=== PATIENT | female | born 1975 | race Caucasian/White ===

== ENCOUNTER 2017-05-19 13:17 | Observation (INO) | payer OTHER ==
[2017-05-19] VITALS (7 sets, daily range): BP systolic 107–137; BP diastolic 62–74; PULSE 69–92; RESP 17–18; TEMP 98.1–98.2; O2SAT 96–100
[~2017-05-19 13:17] MED LIST: MULTTAB4
[2017-05-19 15:07] LABS: AUTOMATED NEUTROPHIL # 2.1 TH/MM3 (1.8-7.7); BASOPHIL % 0.5 % (0.0-2.0); EOSINOPHIL # 0.1 TH/MM3 (0-0.4); EOSINOPHIL % 1.6 % (0.0-4.0); HEMATOCRIT 39.1 % (35.0-46.0); HEMOGLOBIN 13.4 GM/DL (11.6-15.3); LYMPH % 34.9 % (9.0-44.0); LYMPHOCYTE # 1.5 TH/MM3 (1.0-4.8); MEAN CELL VOLUME 91.1 FL (80.0-100.0); MEAN CORPUSCULAR HEMOGLOBIN 31.3 PG (27.0-34.0); MEAN CORPUSCULAR HGB CONC 34.3 % (32.0-36.0); MEAN PLATELET VOLUME 8.3 FL (7.0-11.0); MONO % 13.7 % (0.0-8.0); MONOCYTE # 0.6 TH/MM3 (0-0.9); NEUT % 49.3 % (16.0-70.0); PLATELET COUNT 300 TH/MM3 (150-450); RED CELL DISTRIBUTION WIDTH 12.1 % (11.6-17.2); WHITE BLOOD COUNT 4.2 TH/MM3 (4.0-11.0)
[2017-05-19 15:18] LABS: PROTHROMBIN TIME - PATIENT 10.6 SEC (9.8-11.6)
[2017-05-19 15:23] LABS: BICARBONATE 26.8 MEQ/L (21.0-32.0); BLOOD UREA NITROGEN 8 MG/DL (7-18); CALCIUM 8.6 MG/DL (8.5-10.1); CHLORIDE 106 MEQ/L (98-107); CREATININE 0.58 MG/DL (0.50-1.00); GLOMERULAR FILTRATION RATE 113 ML/MIN (>89); GLUCOSE,RANDOM 77 MG/DL (74-106); SODIUM (NA) 139 MEQ/L (136-145)
[2017-05-19 15:26] LABS: TROPONIN I LESS THAN 0.02 NG/ML (0.02-0.05)
[2017-05-19] MEDS ORDERED: ASPIRIN 325 MG TAB PO ONE (15:45)
[2017-05-19 15:58] LABS: ALBUMIN 4.1 GM/DL (3.4-5.0); DIRECT BILIRUBIN ADULT 0.1 MG/DL (0.0-0.2)
[2017-05-19 16:00] LABS: INDIRECT BILIRUBIN 0.4 MG/DL (0.0-0.8); TOTAL BILIRUBIN ADULT 0.5 MG/DL (0.2-1.0); TOTAL PROTEIN 8.2 GM/DL (6.4-8.2)
--- NOTE | 2017-05-19 16:34 | PD ---
HPI Chief Complaint: Cardiac Complaint Time Seen by Provider: 15:24 Travel History International Travel<30 days: No Contact w/Intl Traveler<30days: No Traveled to known affect area: No History of Present Illness HPI 42-year-old female that presents to the ED for evaluation of left shoulder pain and chest pain. Patient has had this shoulder pain for about 3 weeks and the chest pain for about 3 days. She wasn't aware about the shoulder pain as she believes that a herniated disc versus muscle. She got concerned because the chest pain started 3 days ago and she has a family history of heart disease. She has no history of heart disease herself. No medical issues. Takes no medications. Per patient she is for the most part healthy and does a good diet. She does a lot of organic foods. She states that the pain of the chest is 3 out of 10 and feels more like a pressure. Denies any urinary or bowel movement issues. No nausea or vomiting. She had an episode nausea and vomited yesterday but not today. No history of smoking. PFSH Past Medical History Medical History: Denies Significant Hx Diminished Hearing: No Immunizations Current: No Tetanus Vaccination: Unknown Influenza Vaccination: No ?: Not LMP: a week ago Past Surgical History Appendectomy: Yes Other Surgery: Yes (breast implants 2016) Social History Alcohol Use: Yes (occ ) Tobacco Use: No Substance Use: No Allergies-Medications (Allergen,Severity, Reaction): Coded Allergies: Sulfa (Sulfonamide Antibiotics) (Unverified Adverse Reaction, Severe, RASH , 05/19/17) Reported Meds & Prescriptions Reported Meds & Active Scripts Active Reported Multivitamins (Multiple Vitamin) Tab DAILY Review of Systems Except as stated in HPI: all other systems reviewed are Neg Physical Exam Narrative GENERAL: SKIN: Warm and dry. HEAD: Atraumatic. Normocephalic. EYES: Pupils equal and round. No scleral icterus. No injection or drainage. ENT: No nasal bleeding or discharge. Mucous membranes pink and moist. NECK: Trachea midline. No JVD. CARDIOVASCULAR: Regular rate and rhythm. RESPIRATORY: No accessory muscle use. Clear to auscultation. Breath sounds equal bilaterally. GASTROINTESTINAL: Abdomen soft, non-tender, nondistended. Hepatic and splenic margins not palpable. MUSCULOSKELETAL: Extremities without clubbing, cyanosis, or edema. No obvious deformities. Full ROM of the upper and lower extremities bilaterally. 2+ Pulses bilaterally. NEUROLOGICAL: Awake and alert. No obvious cranial nerve deficits. Motor grossly within normal limits. Five out of 5 muscle strength in the arms and legs. Normal speech. PSYCHIATRIC: Appropriate mood and affect; insight and judgment normal. Data Data Last Documented VS Vital Signs Date Time Temp Pulse Resp B/P (MAP) Pulse Ox O2 Delivery O2 Flow Rate FiO2 05/19/17 15:47 71 18 130/62 (84) 100 Room Air 05/19/17 13:20 98.2 Orders Orders Electrocardiogram (05/19/17 13:40) Complete Blood Count With Diff (05/19/17 13:40) Basic Metabolic Panel (Bmp) (05/19/17 13:40) Ckmb (Isoenzyme) Profile (05/19/17 13:40) Troponin I (05/19/17 13:40) Iv Access Insert/Monitor (05/19/17 13:40) Ecg Monitoring (05/19/17 13:40) Oxygen Administration (05/19/17 13:40) Oximetry (05/19/17 13:40) Prothrombin Time / Inr (Pt) (05/19/17 13:40) Act Partial Throm Time (Ptt) (05/19/17 13:40) Chest, Pa & Lat (05/19/17 ) Ed Urine Pregnancytest Poc (05/19/17 13:40) Lipase (05/19/17 15:38) Hepatic Functional Panel (05/19/17 15:38) Aspirin (Aspirin) (05/19/17 15:45) Admit Order (Ed Use Only) (05/19/17 16:18) Labs Laboratory Tests Test 05/19/17 14:20 White Blood Count 4.2 TH/MM3 Red Blood Count 4.30 MIL/MM3 Hemoglobin 13.4 GM/DL Hematocrit 39.1 % Mean Corpuscular Volume 91.1 FL Mean Corpuscular Hemoglobin 31.3 PG Mean Corpuscular Hemoglobin Concent 34.3 % Red Cell Distribution Width 12.1 % Platelet Count 300 TH/MM3 Mean Platelet Volume 8.3 FL Neutrophils (%) (Auto) 49.3 % Lymphocytes (%) (Auto) 34.9 % Monocytes (%) (Auto) 13.7 % Eosinophils (%) (Auto) 1.6 % Basophils (%) (Auto) 0.5 % Neutrophils # (Auto) 2.1 TH/MM3 Lymphocytes # (Auto) 1.5 TH/MM3 Monocytes # (Auto) 0.6 TH/MM3 Eosinophils # (Auto) 0.1 TH/MM3 Basophils # (Auto) 0.0 TH/MM3 CBC Comment DIFF FINAL Differential Comment Prothrombin Time 10.6 SEC Prothromb Time International Ratio 1.0 RATIO Activated Partial Thromboplast Time 24.7 SEC Blood Urea Nitrogen 8 MG/DL Creatinine 0.58 MG/DL Random Glucose 77 MG/DL Calcium Level 8.6 MG/DL Sodium Level 139 MEQ/L Potassium Level 4.1 MEQ/L Chloride Level 106 MEQ/L Carbon Dioxide Level 26.8 MEQ/L Anion Gap 6 MEQ/L Estimat Glomerular Filtration Rate 113 ML/MIN Total Bilirubin 0.5 MG/DL Direct Bilirubin 0.1 MG/DL Indirect Bilirubin 0.4 MG/DL Aspartate Amino Transf (AST/SGOT) 31 U/L Alanine Aminotransferase (ALT/SGPT) 53 U/L Alkaline Phosphatase 113 U/L Total Creatine Kinase 57 U/L Troponin I LESS THAN 0.02 NG/ML Total Protein 8.2 GM/DL Albumin 4.1 GM/DL Lipase 77 U/L [facility] Medical Decision Making Medical Screen Exam Complete: Yes Emergency Medical Condition: Yes Medical Record Reviewed: Yes Interpretation(s) CBC & BMP Diagram 05/19/17 14:20 Calcium Level 8.6 Troponin and CK-MB negative. EKG shows sinus rhythm with no sign of acute ischemia reviewed by me and attending. CXR negative Differential Diagnosis Chest pain versus atypical chest pain versus cardiac chest pain versus muscle strain versus GI Narrative Course 42-year-old female that presents to the ED for evaluation of chest pain. Patient was properly examined and was found to have signs and symptoms consistent appears to be chest pain. Concern for ACS. Labs and imaging were ordered. Labs and imaging were negative at this time. Case was discussed in my attending. Patient's only risk factor is a strong family history of heart disease. Per patient report upper arms have a heart attack at age 48. I discussed the case with my attending Dr. Jackson recommends admission for chest pain center. Patient agrees with this. Patient was admitted to chest pain center. Diagnosis Primary Impression: Chest pain in adult Admitting Information Admitting Physician Requests: Observation Garret Macias May 19, 2017 16:34
[2017-05-19] MEDS ORDERED: SODIUM CHLORIDE 0.9% FLUSH 10 ML FLUSH IV FLUSH PRN (16:45)
[2017-05-19] MEDS ORDERED: ONDANSETRON HCL 4 MG/2 ML VIAL IV PUSH PRN (16:45)
[2017-05-19] MEDS ORDERED: ACETAMINOPHEN 500 MG CPLT PO PRN (16:45)
[2017-05-19] MEDS ORDERED: NITROGLYCERIN 0.4 MG SL 25 TABS/BTL SL PRN (16:45)
--- NOTE | 2017-05-19 17:10 | RADRPT ---
EXAM DATE/TIME: 05/19/2017 15:02 [facility] COMPARISON: No previous studies available for comparison. INDICATIONS : Vomiting a chest tightness with left arm pain for two weeks. MEDICAL HISTORY : None. SURGICAL HISTORY : Breast augmentation. ENCOUNTER: Initial ACUITY: 2 weeks PAIN SCORE: 2/10 LOCATION: Bilateral chest FINDINGS: PA and lateral views of the chest demonstrate the lungs to be symmetrically aerated without evidence of mass, infiltrate or effusion. No evidence of pneumothorax. The cardiomediastinal contours are un remarkable. Osseous structures are intact. CONCLUSION: No acute cardiopulmonary disease. Cain Long MD on May 19, 2017 at 17:09 Board Certified Radiologist. This report was verified electronically.
--- NOTE | 2017-05-19 17:15 | HHI.HP ---
HPI Service Chest pain center Primary Care Physician Lazaro Vázquez MD Chief Complaint Shoulder and chest pain History of Present Illness 42-year-old lady complains of left shoulder and intermittent chest pain over the last 3 weeks the discomfort is intermittent she cannot define duration but thinks she notices it more when she thinks about it. She has had more pain at night but again she is active during the day and may not be thinking about it. She describes it as a tightness no precipitating or relieving factors and no associated symptoms however about a month ago she had an episode of nausea and vomiting and diarrhea which lasted part of the day and resolved. She had the same episode again yesterday with about an hour and a half of nausea and vomiting with bilious-like fluid and profuse diarrhea for a short period of time which she describes as green and watery. She also complains of a severe frontal headache through the night last night. She recently had an aunt who had a heart attack at 50 years of age this concerned the patient and her mother who instructed her to have this checked out. She is relatively sedentary although she is health-conscious involving organic foods. Pertinent to note that she did not get a flu shot Review of Systems Cardiovascular: COMPLAINS OF: See HPI Gastrointestinal: COMPLAINS OF: Nausea, Vomiting Past Family Social History Allergies: Coded Allergies: Sulfa (Sulfonamide Antibiotics) (Unverified Adverse Reaction, Severe, RASH , 05/19/17) Past Medical History Entirely negative Past Surgical History Appendectomy as a child and breast implants in 2016 Reported Medications Reported Meds & Active Scripts Active Reported Multivitamins (Multiple Vitamin) Tab DAILY Active Ordered Medications Current Medications Medications (Trade) Dose Ordered Sig/Aj Route Start Time Stop Time Status Last Admin (NS Flush) 2 ml UNSCH PRN IV FLUSH 05/19/17 16:45 UNV (NS Flush) 2 ml BID IV FLUSH 05/19/17 21:00 UNV (Tylenol) 500 mg Q4H PRN PO 05/19/17 16:45 UNV (Zofran Inj) 4 mg Q6H PRN IV PUSH 05/19/17 16:45 UNV (Nitrostat Sl) 0.4 mg Q5M PRN SL 05/19/17 16:45 UNV (Aspirin) 325 mg DAILY PO 05/20/17 09:00 UNV Family History Mother 67 living and well but hyperlipidemic Father age 59 of "liver" he was not an alcoholic and she is not aware of any hepatitis Social History No alcohol tobacco (rare social) or illicit drugs Physical Exam Vital Signs Vital Signs Date Time Temp Pulse Resp B/P (MAP) Pulse Ox O2 Delivery O2 Flow Rate FiO2 05/19/17 16:48 76 18 109/74 (86) 99 05/19/17 15:50 Room Air 05/19/17 15:47 71 18 130/62 (84) 100 Room Air 05/19/17 13:20 98.2 92 18 137/70 (92) 98 Physical Exam GENERAL: Patient is sitting up in bed wearing a mask but is alert and cooperative SKIN: Warm and dry. HEAD: Atraumatic. Normocephalic. EYES: Pupils equal and round. No scleral icterus. No injection or drainage. ENT: No nasal bleeding or discharge. Mucous membranes pink and moist. NECK: Trachea midline. No JVD. CARDIOVASCULAR: Regular rate and rhythm. RESPIRATORY: No accessory muscle use. Clear to auscultation. Breath sounds equal bilaterally. Bilateral breast implants but not examined GASTROINTESTINAL: Abdomen soft, non-tender, nondistended. Hepatic and splenic margins not palpable. MUSCULOSKELETAL: Extremities without clubbing, cyanosis, or edema. No obvious deformities. NEUROLOGICAL: Awake and alert. No obvious cranial nerve deficits. Motor grossly within normal limits. Five out of 5 muscle strength in the arms and legs. Normal speech. PSYCHIATRIC: Appropriate mood and affect; insight and judgment normal. Laboratory Laboratory Tests Test 05/19/17 14:20 White Blood Count 4.2 Red Blood Count 4.30 Hemoglobin 13.4 Hematocrit 39.1 Mean Corpuscular Volume 91.1 Mean Corpuscular Hemoglobin 31.3 Mean Corpuscular Hemoglobin Concent 34.3 Red Cell Distribution Width 12.1 Platelet Count 300 Mean Platelet Volume 8.3 Neutrophils (%) (Auto) 49.3 Lymphocytes (%) (Auto) 34.9 Monocytes (%) (Auto) 13.7 Eosinophils (%) (Auto) 1.6 Basophils (%) (Auto) 0.5 Neutrophils # (Auto) 2.1 Lymphocytes # (Auto) 1.5 Monocytes # (Auto) 0.6 Eosinophils # (Auto) 0.1 Basophils # (Auto) 0.0 CBC Comment DIFF FINAL Differential Comment Prothrombin Time 10.6 Prothromb Time International Ratio 1.0 Activated Partial Thromboplast Time 24.7 Blood Urea Nitrogen 8 Creatinine 0.58 Random Glucose 77 Calcium Level 8.6 Sodium Level 139 Potassium Level 4.1 Chloride Level 106 Carbon Dioxide Level 26.8 Anion Gap 6 Estimat Glomerular Filtration Rate 113 Total Bilirubin 0.5 Direct Bilirubin 0.1 Indirect Bilirubin 0.4 Aspartate Amino Transf (AST/SGOT) 31 Alanine Aminotransferase (ALT/SGPT) 53 Alkaline Phosphatase 113 Total Creatine Kinase 57 Troponin I LESS THAN 0.02 Total Protein 8.2 Albumin 4.1 Lipase 77 Result Diagram: 05/19/17141905/19/171419 Imaging Pending Course We will rule out ACS using standard chest pain center protocol and if negative will stress test in the morning Caprini VTE Risk Assessment Caprini VTE Risk Assessment: No/Low Risk (score <= 1) Caprini Risk Assessment Model Point Value = 1 Point Value = 2 Point Value = 3 Point Value = 5 Age 41-60 Minor surgery BMI > 25 kg/m2 Swollen legs Varicose veins or History of unexplained or recurrent spontaneous Oral contraceptives or hormone replacement Sepsis (< 1 month) Serious lung disease, including pneumonia (< 1 month) Abnormal pulmonary function Acute myocardial infarction Congestive heart failure (< 1 month) History of inflammatory bowel disease Medical patient at bed rest Age 61-74 Arthroscopic surgery Major open surgery (> 45 min) Laparoscopic surgery (> 45 min) Malignancy Confined to bed (> 72 hours) Immobilizing plaster cast Central venous access Age >= 75 History of VTE Family history of VTE Factor V Leiden Prothrombin [id number] Lupus anticoagulant Anticardiolipin antibodies Elevated serum homocysteine Heparin-induced thrombocytopenia Other congenital or acquired thrombophilia Stroke (< 1 month) Elective arthroplasty Hip, pelvis, or leg fracture Acute spinal cord injury (< 1 month) Prophylaxis Regimen Total Risk Factor Score Risk Level Prophylaxis Regimen 0-1 Low Early ambulation 2 Moderate Order ONE of the following: *Sequential Compression Device (SCD) *Heparin 5000 units SQ BID 3-4 Higher Order ONE of the following medications: *Heparin 5000 units SQ TID *Enoxaparin/Lovenox 40 mg SQ daily (WT < 150 kg, CrCl > 30 mL/min) *Enoxaparin/Lovenox 30 mg SQ daily (WT < 150 kg, CrCl > 10-29 mL/min) *Enoxaparin/Lovenox 30 mg SQ BID (WT < 150 kg, CrCl > 30 mL/min) AND/OR *Sequential Compression Device (SCD) 5 or more Highest Order ONE of the following medications: *Heparin 5000 units SQ TID (Preferred with Epidurals) *Enoxaparin/Lovenox 40 mg SQ daily (WT < 150 kg, CrCl > 30 mL/min) *Enoxaparin/Lovenox 30 mg SQ daily (WT < 150 kg, CrCl > 10-29 mL/min) *Enoxaparin/Lovenox 30 mg SQ BID (WT < 150 kg, CrCl > 30 mL/min) AND *Sequential Compression Device (SCD) Assessment and Plan Problem List: (1) Chest pain in adult ICD Codes: R07.9 - Chest pain, unspecified Status: Acute Plan: Rule out ACS and consider stress test Code Status Full code Discussed Condition With Discussed our assessment and plan with the patient Sonny Bernard MD May 19, 2017 17:15
[2017-05-19 18:08] LABS: TROPONIN I LESS THAN 0.02 NG/ML (0.02-0.05)
[2017-05-19] MEDS: SODIUM CHLORIDE 0.9% FLUSH 10 ML FLUSH IV FLUSH SCH (21:00)
[2017-05-19 21:12] LABS: TROPONIN I LESS THAN 0.02 NG/ML (0.02-0.05)
--- NOTE | 2017-05-19 23:17 | EKG ---
Date Performed: 05/19/2017 Time Performed: 15:14:33 PTAGE: 42 years EKG: Sinus rhythm WITH SINUS ARRHYTHMIA POSSIBLE LEFT ATRIAL ENLARGEMENT POSSIBLE RIGHT VENTRICULAR CONDUCTION DELAY B ORDERLINE ECG NO PREVIOUS TRACING DOCTOR: Jose David Rhodes Interpretating Date/Time 05/19/2017 23:15:19
[2017-05-20 04:17] VITALS: BP 96/54; PULSE 77; RESP 16; TEMP 98.1; O2SAT 97
[2017-05-20 08:00] VITALS: O2SAT 97
[2017-05-20] MEDS: SODIUM CHLORIDE 0.9% FLUSH 10 ML FLUSH IV FLUSH SCH (08:20)
[2017-05-20] MEDS ORDERED: ASPIRIN 325 MG TAB PO SCH (09:00)
--- NOTE | 2017-05-20 09:59 | HHI.DCPOC ---
Discharge Care Plan Diagnosis: (1) Chest pain in adult Goals to Promote Your Health * To prevent worsening of your condition and complications * To maintain your health at the optimal level Directions to Meet Your Goals Take your medications as prescribed Follow your dietary instruction Follow activity as directed Keep your appointments as scheduled Take your immunizations and boosters as scheduled If your symptoms worsen call your PCP, if no PCP go to Urgent Care Center or Emergency Room Smoking is Dangerous to Your Health. Avoid second hand smoke Call the 24-hour hour crisis hotline for domestic abuse at Deepthi Morales May 20, 2017 09:59
--- NOTE | 2017-05-20 10:13 | HHI.DS ---
Discharge Summary Admission Date May 19, 2017 at 16:19 Discharge Date: May 20, 2017 Admitting Diagnosis acute chest pain, R/o ACS (1) Chest pain in adult Diagnosis: Principal ICD Codes: R07.9 - Chest pain, unspecified Status: Acute Procedures Last 48 hours Impressions Chest X-Ray 05/19/17 0000 Signed Impressions: Service Date/Time: Friday, May 19, 2017 15:02 - CONCLUSION: No acute cardiopulmonary disease. Cain Long MD Brief History 42-year-old female with known significant past medical history of present emergency room for further evaluation of chest pain. Onset 3 weeks. The chest pain center. Ruled out with serial EKGs and cardiac enzymes. Seen and evaluated by Dr. Sonny Bernard. Monitored on telemetry overnight. Completed exercise stress test the a.m. which did not suggest ischemia. Discharge home. CBC/BMP: 05/19/17 1420 05/19/17 1420 Significant Findings Laboratory Tests Test 05/19/17 14:20 05/19/17 17:20 05/19/17 20:20 Monocytes (%) (Auto) 13.7 % (0.0-8.0) Troponin I LESS THAN 0.02 NG/ML LESS THAN 0.02 NG/ML LESS THAN 0.02 NG/ML PE at Discharge GENERAL: Alert WN, WD, NAD, pleasant, female HEAD: NC, AT CV: RRR, without murmur, rub, gallop, no JVD, S1-S2 no S3-S4. RESP: Clear lungs throughout bilateral, no crackles, wheeze, rhonchi, symmetrical chest rise, nonlabored, able to speak in full sentences NEURO: CN II through CN XII grossly intact, motor strength 5/5, gait WNL PSYCH: A+O 3, pleasant affect, appropriate speech, mood, insight, and judgment. Pt Condition on Discharge: Good Discharge Disposition: Discharge Home Discharge Instructions DIET: Follow Instructions for: Heart Healthy Diet Activities you can perform: Regular-No Restrictions Deepthi Morales May 20, 2017 10:13
[2017-05-20 11:11] VITALS: PULSE 66
--- NOTE | 2017-05-20 16:36 | EKG ---
Date Performed: 05/19/2017 Time Performed: 20:31:18 PTAGE: 42 years EKG: Sinus rhythm POSSIBLE RIGHT VENTRICULAR CONDUCTION DELAY SEPTAL MYOCARDIAL INFARCTION ABNORMAL ECG NO SIG CHANGE PREVIOUS TRACING : 05/19/2017 17.49 DOCTOR: Sonny Bernard Interpretating Date/Time 05/20/2017 16:34:41
--- NOTE | 2017-05-20 16:37 | EKG ---
Date Performed: 05/19/2017 Time Performed: 17:49:36 PTAGE: 42 years EKG: Sinus rhythm WITH SINUS ARRHYTHMIA POSSIBLE RIGHT VENTRICULAR CONDUCTION DELAY SEPTAL MYOCARDIAL INFARCTION ABNOR MAL ECG NO SIG CHANGE NO PREVIOUS TRACING DOCTOR: Sonny Bernard Interpretating Date/Time 05/20/2017 16:35:49
--- NOTE | 2017-05-20 16:41 | TR ---
Date Performed: 05/20/2017 Time Performed: 09:24:34 DOCTOR: Sonny Bernard DRUG LIST: CLINICAL HISTORY: ACUTE CHEST PAIN REASON FOR TEST: ACUTE CHEST PAIN REASON FOR ENDING: OBSERVATION: CONCLUSION: Asher protocol completed. Stopped sec to reaching target heart rate and leg fatigue. Maximum YW=819 Target HR Achieved=86.0% Maximum NJ=436/80 Total Exercise Time=7:08. No reprod chest discomfort. No ectopy. St segments inferiorly appeared horitionzal upsloping, nondiagnostic. Normal b p response. Good exercise tolerance. Recovery quick and unremarkable. COMMENTS:
== END 2017-05-20 11:48 | disposition home or self-care (01) ==
LOC: NEPE 13:17 → NEDA 16:19 → NEPFCDU 17:13
PROVIDERS: ADMIT Internal Medicine Interventional Cardiology; ATTEND Internal Medicine Interventional Cardiology
DX: R07.9 Chest pain, unspecified (principal); I25.2 Old myocardial infarction; R94.31 Abnormal electrocardiogram [ECG] [EKG]; Z82.49 Family history of ischemic heart disease and other diseases of the circulatory system
CPT/HCPCS: 71046; 80048; 80076; 82550; 83690; 84484; 84703; 85025; 85610; 85730; 93005; 93017; 99285; G0378